=== PATIENT | female | born 1995 | race African-American/Black ===

== ENCOUNTER 2018-03-31 18:34 | Emergency (ER) | payer MEDICAID ==
[~2018-03-31] VITALS: Ht 167.6 cm; Wt 68.0 kg
[2018-03-31 18:42] VITALS: BP 115/85
[2018-03-31] MEDS ORDERED: Bacitracin Oint UD TOPIC ONE (19:30)
[2018-03-31] MEDS ORDERED: Tylenol #3 tab (300mg/30mg) ORAL ONE (20:45)
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
[2018-03-31] MEDS ORDERED: ROBAXIN-750750 MG PO (20:57)
[2018-03-31] MEDS ORDERED: TYLENOL EXTRA500 MG ORAL (20:57)
[2018-03-31 22:00] VITALS: BP 115/85
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
== END 2018-03-31 22:01 | disposition home or self-care (01) ==
LOC: EMR 21:37
DX: S42.402A Unspecified fracture of lower end of left humerus, initial encounter for closed fracture (principal); S00.83XA Contusion of other part of head, initial encounter; S01.83XA Puncture wound without foreign body of other part of head, initial encounter; V47.1XXA Car passenger injured in collision with fixed or stationary object in nontraffic accident, initial encounter; Y92.89 Other specified places as the place of occurrence of the external cause
CPT/HCPCS: 29125; 70450; 99284